=== PATIENT | female | born 1940 | race Caucasian/White ===

== ENCOUNTER → 2016-10-20 | Outpatient (CLI) | payer MEDICARE, OTHER ==
[~2016-10-20] MED LIST: ADVA115A INH; ADVAI100I PO; ALPR0.5T3 PO; ALPR0.5T99 PO; ASPI81CH CHEW; CALC0.25 PO; CEPH500T PO; FERR200T PO; FERR325T PO; FOLI1TAB4; FURO20TA PO; HYDR-3535 PO; HYDR12.56 PO; HYDR25TA35 PO; HYDR25TA5; KETO2CRE; LANTINJ SQ; LANTUS2P SC; LEVO.05 PO; LEVO.075 PO; LIDO1PAD52 T-DERMAL; LIDO5DIS35 TD; LISI-357 PO; LISI-519 PO; METO50CR PO; METO50TA PO; MUPI2OIN TP; NORC7.5T PO; NOVOLOGP2 SQ; NYST15T; OMEG300C5 PO; OMEP40CA2 PO; PRED1 PO; PRED5 PO; PRED5TAB PO; PRIL40CA PO; ROSU10 PO; TEMA30CA PO; TOBR3.5O EACH EYE; TRAD5TAB PO; VITA1000 PO; VITA100020 SL; VITA100021 SL; VITA100C4 PO; VITATAB25 PO
[2016-10-20 15:33] LABS: BASOPHIL # 0.1 TH/MM3 (0-0.2); BASOPHIL % 0.5 % (0.0-2.0); EOSINOPHIL % 0.4 % (0.0-4.0); HEMO FLAGS DIFF FINAL; LYMPH % 8.1 % (9.0-44.0); LYMPHOCYTE # 1.1 TH/MM3 (1.0-4.8); MEAN CELL VOLUME 93.9 FL (80.0-100.0); MEAN CORPUSCULAR HGB CONC 30.9 % (32.0-36.0); MONO % 7.5 % (0.0-8.0); NEUT % 83.5 % (16.0-70.0); PLATELET COUNT 229 TH/MM3 (150-450); RED BLOOD COUNT 4.15 MIL/MM3 (4.00-5.30); RED CELL DISTRIBUTION WIDTH 17.1 % (11.6-17.2); WHITE BLOOD COUNT 13.2 TH/MM3 (4.0-11.0)
[2016-10-20 15:52] LABS: WESTERGREN SEDIMENTATION RATE 40 mm/hr (0-30)
[2016-10-20 15:57] LABS: ALT (GPT) 33 U/L (10-53); ANION GAP 8 MEQ/L (5-15); AST (GOT) 16 U/L (15-37); BICARBONATE 27.2 MEQ/L (21.0-32.0); BLOOD UREA NITROGEN 55 MG/DL (7-18); CHLORIDE 105 MEQ/L (98-107); GLOMERULAR FILTRATION RATE 20 ML/MIN (>89); POTASSIUM 3.7 MEQ/L (3.5-5.1); SODIUM (NA) 140 MEQ/L (136-145)
[2016-10-20 16:00] LABS: ALKALINE PHOSPHATASE 63 U/L (45-117); TOTAL BILIRUBIN ADULT 0.3 MG/DL (0.2-1.0)
== END ==
LOC: PLAB 10:31
PROVIDERS: ATTEND Allergy & Immunology
DX: M05.79 Rheumatoid arthritis with rheumatoid factor of multiple sites without organ or systems involvement (principal); M35.3 Polymyalgia rheumatica
CPT/HCPCS: 36415; 80053; 85025; 85652; 86140

== ENCOUNTER → 2016-11-16 | Outpatient (CLI) | payer MEDICARE, OTHER ==
--- NOTE | 2016-11-19 09:09 | HM ---
Date Performed: 11/16/2016 Time Performed: 12:32:00 HOOKUP DATE: 11/16/16 12:32:00 PM Wed ANALYSIS START TIME: 11/16/2016 12:37:00 PM ANALYSIS END TIME: 11/17/2016 12:41:00 PM PATIENT AGE: 76 PATIENT HEIGHT PATIENT WEIGHT DRUG LIST PATIENT DIAGNOSIS: HEART PALPITATIONS TEST NARRATIVE: The patient's average heart rate was 75 BPM. No episodes of tachycardia wer e noted. No episodes of bradycardia were noted. No pauses exceeding 2.0 seconds were noted. 11 ventricular ectopics, which represented < 1% of the total beat count, were noted. The highest an tricular ectopic frequency occurred from 09:00 PM to 10:00 PM Wed. During this time 2 VE(s) occurred . Ventricular ectopics were observed as 11 isolated beat(s) only. No couplets or runs were noted. 3 supraventricular ectopics, which represented < 1% of the total beat count, were noted. The high est supraventricular ectopic frequency occurred from 05:00 AM to 06:00 AM Lakisha. During this time 1 SV E(s) occurred. No episodes of ST depression (defined as -1.0 mm or more) were noted in channel 1. No episodes of ST depression (defined as -1.0 mm or more) were noted in channel 2. No episodes of ST depression (defined as -1.0 mm or more) were noted in channel 3. TEST INTERPRETATION: Agree with the narrative. Overall, patient has very infrequent ventricular beats, with only 11 recorded and 3 PACS recorded. No complex arrythmias were present. The patient no pj palpitations once with dizziness at 830am. No arrythmias were noted. Overall, this is a very chelsey gn appearing holter monitor. Janny d by : Edvin Andino
== END ==
LOC: HCAV 12:17
PROVIDERS: ATTEND Family Medicine
DX: G45.9 Transient cerebral ischemic attack, unspecified (principal); R00.2 Palpitations; H54.0 Blindness, both eyes
CPT/HCPCS: 93225; 93226

== ENCOUNTER → 2016-11-30 | Outpatient (CLI) | payer MEDICARE, OTHER ==
[~2016-11-30] MED LIST changes: -ADVAI100I PO; -ALPR0.5T99 PO; -FERR325T PO; -HYDR12.56 PO; -HYDR25TA35 PO; -LANTUS2P SC; -LEVO.05 PO; -LIDO5DIS35 TD; -LISI-357 PO; -METO50CR PO; -NORC7.5T PO; -PRED5 PO; -PRIL40CA PO; -VITA100020 SL; -VITATAB25 PO
[2016-11-30 12:50] LABS: BLOOD, URINE NEG (NEG); COMMENT (UR) CULT NOT INDICATED; CULTURE IF INDICATED CULT NOT INDICATED; GLUCOSE,URINE TRACE mg/dL (NEG); KETONE, URINE NEG (NEG); MUCUS URINE FEW /lpf (OCC); NITRITE,URINE NEG (NEG); SQUAMOUS EPITHELIAL CELL URINE <1 /hpf (0-5); URINE COLOR YELLOW (YELLW/STRAW)
[2016-11-30 13:10] LABS: AUTOMATED NEUTROPHIL # 10.2 TH/MM3 (1.8-7.7); BASOPHIL # 0.1 TH/MM3 (0-0.2); BASOPHIL % 0.7 % (0.0-2.0); EOSINOPHIL # 0.2 TH/MM3 (0-0.4); EOSINOPHIL % 1.7 % (0.0-4.0); HEMATOCRIT 35.8 % (35.0-46.0); HEMO FLAGS DIFF FINAL; LYMPH % 6.4 % (9.0-44.0); LYMPHOCYTE # 0.8 TH/MM3 (1.0-4.8); MEAN CELL VOLUME 92.1 FL (80.0-100.0); MEAN CORPUSCULAR HEMOGLOBIN 29.7 PG (27.0-34.0); MEAN CORPUSCULAR HGB CONC 32.3 % (32.0-36.0); MONO % 9.8 % (0.0-8.0); NEUT % 81.4 % (16.0-70.0); PLATELET COUNT 221 TH/MM3 (150-450); RED BLOOD COUNT 3.89 MIL/MM3 (4.00-5.30); RED CELL DISTRIBUTION WIDTH 16.8 % (11.6-17.2); WHITE BLOOD COUNT 12.5 TH/MM3 (4.0-11.0)
[2016-11-30 13:11] LABS: BICARBONATE 28.4 MEQ/L (21.0-32.0); POTASSIUM 3.9 MEQ/L (3.5-5.1)
== END ==
LOC: PLAB 10:57
PROVIDERS: ATTEND Internal Medicine Nephrology
DX: N25.81 Secondary hyperparathyroidism of renal origin (principal); N18.4 Chronic kidney disease, stage 4 (severe)
CPT/HCPCS: 36415; 80069; 81001; 82570; 83970; 84156; 85025

== ENCOUNTER → 2017-01-23 | Outpatient (CLI) | payer MEDICARE, OTHER ==
[2017-01-23 13:29] LABS: AUTOMATED NEUTROPHIL # 10.4 TH/MM3 (1.8-7.7); BASOPHIL # 0.1 TH/MM3 (0-0.2); EOSINOPHIL # 0.1 TH/MM3 (0-0.4); EOSINOPHIL % 0.9 % (0.0-4.0); HEMATOCRIT 35.4 % (35.0-46.0); HEMO FLAGS DIFF FINAL; LYMPH % 9.2 % (9.0-44.0); LYMPHOCYTE # 1.2 TH/MM3 (1.0-4.8); MEAN CELL VOLUME 92.4 FL (80.0-100.0); MEAN CORPUSCULAR HEMOGLOBIN 29.9 PG (27.0-34.0); MEAN CORPUSCULAR HGB CONC 32.3 % (32.0-36.0); MONO % 8.3 % (0.0-8.0); NEUT % 80.6 % (16.0-70.0); PLATELET COUNT 219 TH/MM3 (150-450); RED BLOOD COUNT 3.83 MIL/MM3 (4.00-5.30); RED CELL DISTRIBUTION WIDTH 17.4 % (11.6-17.2)
[2017-01-23 13:55] LABS: ALT (GPT) 30 U/L (10-53); ANION GAP 7 MEQ/L (5-15); AST (GOT) 14 U/L (15-37); BICARBONATE 28.6 MEQ/L (21.0-32.0); BLOOD UREA NITROGEN 50 MG/DL (7-18); CHLORIDE 105 MEQ/L (98-107); POTASSIUM 4.6 MEQ/L (3.5-5.1); SODIUM (NA) 141 MEQ/L (136-145)
[2017-01-23 14:04] LABS: ALKALINE PHOSPHATASE 60 U/L (45-117); GLOMERULAR FILTRATION RATE 25 ML/MIN (>89); TOTAL BILIRUBIN ADULT 0.3 MG/DL (0.2-1.0)
== END ==
LOC: PLAB 11:11
PROVIDERS: ATTEND Allergy & Immunology
DX: M35.3 Polymyalgia rheumatica (principal)
CPT/HCPCS: 36415; 80053; 85025

== ENCOUNTER → 2017-01-27 | Outpatient (CLI) | payer MEDICARE, OTHER ==
[2017-01-27 13:53] LABS: ALKALINE PHOSPHATASE 61 U/L (45-117); ALT (GPT) 29 U/L (10-53); AST (GOT) 14 U/L (15-37); FERRITIN 191 NG/ML (8-252); INDIRECT BILIRUBIN 0.2 MG/DL (0.0-0.8); TOTAL BILIRUBIN ADULT 0.3 MG/DL (0.2-1.0); TRANSFERRIN IRON PROFILE 249 MG/DL (200-360)
[2017-01-29 23:54] LABS: MITOCHONDRIAL ABS LESS THAN 20.0 U (())
[2017-01-30 19:52] LABS: IGA SERUM 192 mg/dL (81-463); TISSUE TRANSGLUTAMINASE AB IGG ND U/mL (())
[2017-02-01 03:50] LABS: ENDOMYSIAL AB TITER ND (<1:5); TISSUE TRANSGLUTAMINASE AB LESS THAN 1 U/mL (())
== END ==
LOC: PLAB 09:14
PROVIDERS: ATTEND Internal Medicine
DX: K76.0 Fatty (change of) liver, not elsewhere classified (principal); M35.3 Polymyalgia rheumatica
CPT/HCPCS: 80076; 82103; 82728; 82784; 83516; 83520; 83540; 83550; 85652; 86038; 86140; 86256

== ENCOUNTER → 2017-03-09 | Outpatient (CLI) | payer MEDICARE, OTHER ==
[2017-03-09 09:49] LABS: BLOOD, URINE NEG (NEG); COMMENT (UR) CULT NOT INDICATED; CULTURE IF INDICATED CULT NOT INDICATED; GLUCOSE,URINE NEG (NEG); HYALINE CAST, URINE 1 /lpf (RARE); KETONE, URINE NEG (NEG); MUCUS URINE FEW /lpf (OCC); NITRITE,URINE NEG (NEG); SQUAMOUS EPITHELIAL CELL URINE <1 /hpf (0-5); URINE COLOR YELLOW (YELLW/STRAW)
[2017-03-09 09:50] LABS: AUTOMATED NEUTROPHIL # 7.8 TH/MM3 (1.8-7.7); BASOPHIL # 0.1 TH/MM3 (0-0.2); BASOPHIL % 0.7 % (0.0-2.0); EOSINOPHIL # 0.1 TH/MM3 (0-0.4); EOSINOPHIL % 0.9 % (0.0-4.0); HEMATOCRIT 36.2 % (35.0-46.0); LYMPH % 12.9 % (9.0-44.0); LYMPHOCYTE # 1.3 TH/MM3 (1.0-4.8); MEAN CELL VOLUME 92.5 FL (80.0-100.0); MEAN CORPUSCULAR HEMOGLOBIN 29.8 PG (27.0-34.0); MEAN CORPUSCULAR HGB CONC 32.2 % (32.0-36.0); MONO % 8.7 % (0.0-8.0); NEUT % 76.8 % (16.0-70.0); PLATELET COUNT 210 TH/MM3 (150-450); RED BLOOD COUNT 3.91 MIL/MM3 (4.00-5.30); RED CELL DISTRIBUTION WIDTH 17.3 % (11.6-17.2); WHITE BLOOD COUNT 10.2 TH/MM3 (4.0-11.0)
[2017-03-09 09:58] LABS: HEMO FLAGS AUTO DIFF
[2017-03-09 10:01] LABS: POTASSIUM 4.3 MEQ/L (3.5-5.1)
[2017-03-09 10:10] LABS: FREE T4 1.07 NG/DL (0.76-1.46)
[2017-03-09 10:59] LABS: BANDS 2 % (0-6); BASOPHILS 1 % (0-2); EOSINOPHILS 1 % (0-4); METAMYELOCYTES 1 % (0-1); MYELOCYTES 1 % (0-0); NEUTROPHIL # MANUAL DIFF 8.8 TH/MM3 (1.8-7.7); POLYS (SEG NEUTROPHILS) 82 % (16-70); WBC DIFF SAMPLE 100
[2017-03-09 11:00] LABS: SCAN/DIFF FINAL DIFF MANUAL
[2017-03-09 16:51] LABS: HEMOGLOBIN A1b 2.9 %; HEMOGLOBIN Ao 77.7 %; HEMOGLOBIN LA1C 2.9 %; HEMOGLOBIN P3 7.9 %
== END ==
LOC: PLAB 07:56
PROVIDERS: ATTEND Internal Medicine Nephrology
DX: E03.9 Hypothyroidism, unspecified (principal); N18.4 Chronic kidney disease, stage 4 (severe); E11.22 Type 2 diabetes mellitus with diabetic chronic kidney disease
CPT/HCPCS: 36415; 80069; 81001; 82570; 83036; 83970; 84156; 84439; 84443; 85007; 85027

== ENCOUNTER → 2017-03-14 | Day surgery (SDC) | payer MEDICARE, OTHER ==
[~2017-03-14] VITALS: Ht 172.7 cm; Wt 91.3 kg
[~2017-03-14] MED LIST changes: +BUPIVACAINE/EPINEPHRINE 0.5% PF 30 ML VIAL ONE; +CHLORHEXIDINE GLUCONATE 2 % 1 PACK (2 CLOTHS) TOPICAL PRN; +DO NOT ADM ANY ANTICOAGULANT DRUGS PRN; +FAMOTIDINE 20 MG/2 ML VIAL ONE; -FOLI1TAB4; -HYDR25TA5; +INSULIN HUMAN REGULAR 1,000 UNITS/10 ML VIAL SQ PRN; +KETAMINE HCL 500 MG/5 ML VIAL ONE; -KETO2CRE; +LACTATED RINGER'S 1000 ML IV PRN; +METOPROLOL TARTRATE 25 MG TAB PO PRN; +MIDAZOLAM HCL 2 MG/2 ML VIAL ONE; -NYST15T; +ONDANSETRON HCL 4 MG/2 ML VIAL IV PUSH ONE; +PHENYLEPH/NS 1000 MCG/10 ML SYR IV ONE; +POVIDONE IODINE 5% (ANTISEPSIS KIT) 4 APPLICATIONS EACH NARE PRN; +PROPOFOL 200 MG/20 ML AMP IV ONE; +SODIUM CHLORID 0.9% 500 ML IV PRN; +fentaNYL CITRATE 250 MCG/5 ML AMP ONE
[2017-03-14 06:47] LABS: AUTOMATED NEUTROPHIL # 10.3 TH/MM3 (1.8-7.7); BASOPHIL # 0.1 TH/MM3 (0-0.2); BASOPHIL % 0.6 % (0.0-2.0); EOSINOPHIL # 0.1 TH/MM3 (0-0.4); EOSINOPHIL % 1.1 % (0.0-4.0); HEMATOCRIT 35.4 % (35.0-46.0); HEMO FLAGS DIFF FINAL; LYMPH % 10.8 % (9.0-44.0); LYMPHOCYTE # 1.4 TH/MM3 (1.0-4.8); MEAN CELL VOLUME 91.7 FL (80.0-100.0); MEAN CORPUSCULAR HEMOGLOBIN 30.3 PG (27.0-34.0); MEAN CORPUSCULAR HGB CONC 33.1 % (32.0-36.0); MONO % 9.7 % (0.0-8.0); NEUT % 77.8 % (16.0-70.0); PLATELET COUNT 221 TH/MM3 (150-450); RED BLOOD COUNT 3.86 MIL/MM3 (4.00-5.30); RED CELL DISTRIBUTION WIDTH 17.5 % (11.6-17.2); WHITE BLOOD COUNT 13.2 TH/MM3 (4.0-11.0)
[2017-03-14 07:01] LABS: POTASSIUM 4.1 MEQ/L (3.5-5.1)
[2017-03-14 07:13] VITALS: BP 121/72; PULSE 75; RESP 18; TEMP 98.2; O2SAT 98
[2017-03-14 10:37] VITALS: BP 103/56; PULSE 72; RESP 18; TEMP 98; O2SAT 100
--- NOTE | 2017-03-14 22:45 | MP ---
cc: JUICE HERNÁNDEZ MD,GENA MCCAIN MD DATE OF SURGERY 03/14/17 PREOPERATIVE DIAGNOSIS Temporal arteritis. POSTOPERATIVE DIAGNOSIS Temporal arteritis. PROCEDURE Bilateral temporal artery biopsy. SURGEON Regan Ladd MD HYPO DIPPER YULI Rogers ANESTHESIA General/local. DESCRIPTION OF PROCEDURE With the patient in the supine position general endotracheal anesthesia was induced, both facial regions and both ears were prepped with Betadine and draped in a sterile fashion. No prophylactic antibiotic was indicated. Following a protocol time-out, the skin and subcutaneous tissue immediately anterior to each ear was infiltrated with 0.5% Marcaine with epinephrine. Vertical incisions were performed. The right and left superficial temporal arteries were circumferentially mobilized proximally and distally for approximately 5 cm. Branches were individually isolated and ligated with small hemoclips. The superficial temporal arteries were ligated proximally and distally with hemoclips and intervening segment excised, submitted for histology. Strict hemostasis was achieved. Both incisions were closed with continuous subcuticular 5-0 Monocryl. Reinforced with Steri-Strips. No operative complications. The patient returned to the recovery room in stable condition having tolerated procedure well. Regan Ladd MD JTS/EO /6:30 PM /10:28 PM
== END | disposition home or self-care (01) ==
LOC: HSDC 06:01
PROVIDERS: ATTEND Surgery Vascular Surgery
DX: M31.5 Giant cell arteritis with polymyalgia rheumatica (principal); J44.9 Chronic obstructive pulmonary disease, unspecified; I13.0 Hypertensive heart and chronic kidney disease with heart failure and stage 1 through stage 4 chronic kidney disease, or unspecified chronic kidney disease; E11.22 Type 2 diabetes mellitus with diabetic chronic kidney disease; N18.4 Chronic kidney disease, stage 4 (severe); E11.40 Type 2 diabetes mellitus with diabetic neuropathy, unspecified; I50.30 Unspecified diastolic (congestive) heart failure; E78.5 Hyperlipidemia, unspecified; E03.9 Hypothyroidism, unspecified; M06.9 Rheumatoid arthritis, unspecified; E66.9 Obesity, unspecified; Z68.30 Body mass index [BMI] 30.0-30.9, adult; Z99.2 Dependence on renal dialysis; Z85.51 Personal history of malignant neoplasm of bladder; Z87.891 Personal history of nicotine dependence; Z79.82 Long term (current) use of aspirin; Z79.4 Long term (current) use of insulin; Z79.52 Long term (current) use of systemic steroids; Z88.1 Allergy status to other antibiotic agents; Z88.0 Allergy status to penicillin; Z88.8 Allergy status to other drugs, medicaments and biological substances
CPT/HCPCS: 37609; 80048; 85025; 88305; J2250; J2370; J2405; J3010; J7120; 88304

== ENCOUNTER → 2017-03-28 | Outpatient (CLI) | payer MEDICARE, OTHER ==
[~2017-03-28] MED LIST changes: -BUPIVACAINE/EPINEPHRINE 0.5% PF 30 ML VIAL ONE; -CHLORHEXIDINE GLUCONATE 2 % 1 PACK (2 CLOTHS) TOPICAL PRN; -DO NOT ADM ANY ANTICOAGULANT DRUGS PRN; -FAMOTIDINE 20 MG/2 ML VIAL ONE; -INSULIN HUMAN REGULAR 1,000 UNITS/10 ML VIAL SQ PRN; -KETAMINE HCL 500 MG/5 ML VIAL ONE; -LACTATED RINGER'S 1000 ML IV PRN; -METOPROLOL TARTRATE 25 MG TAB PO PRN; -MIDAZOLAM HCL 2 MG/2 ML VIAL ONE; -OMEG300C5 PO; -ONDANSETRON HCL 4 MG/2 ML VIAL IV PUSH ONE; -PHENYLEPH/NS 1000 MCG/10 ML SYR IV ONE; -POVIDONE IODINE 5% (ANTISEPSIS KIT) 4 APPLICATIONS EACH NARE PRN; -PROPOFOL 200 MG/20 ML AMP IV ONE; -SODIUM CHLORID 0.9% 500 ML IV PRN; -fentaNYL CITRATE 250 MCG/5 ML AMP ONE
[2017-03-28 16:46] LABS: BICARBONATE 23.1 MEQ/L (21.0-32.0); POTASSIUM 4.4 MEQ/L (3.5-5.1)
== END ==
LOC: PLAB 12:23
PROVIDERS: ATTEND Internal Medicine Nephrology
DX: N18.4 Chronic kidney disease, stage 4 (severe) (principal)
CPT/HCPCS: 36415; 80069

== ENCOUNTER → 2017-05-31 | Outpatient (CLI) | payer MEDICARE, OTHER ==
[~2017-05-31] MED LIST changes: +AGGR20025 PO; -ASPI81CH CHEW; -CEPH500T PO
[2017-05-31 16:29] LABS: AUTOMATED NEUTROPHIL # 9.7 TH/MM3 (1.8-7.7); BASOPHIL # 0.1 TH/MM3 (0-0.2); BASOPHIL % 0.8 % (0.0-2.0); EOSINOPHIL # 0.1 TH/MM3 (0-0.4); EOSINOPHIL % 0.7 % (0.0-4.0); HEMATOCRIT 35.2 % (35.0-46.0); HEMO FLAGS DIFF FINAL; LYMPH % 8.2 % (9.0-44.0); MEAN CELL VOLUME 93.1 FL (80.0-100.0); MEAN CORPUSCULAR HEMOGLOBIN 29.8 PG (27.0-34.0); MONO % 7.3 % (0.0-8.0); PLATELET COUNT 233 TH/MM3 (150-450); RED BLOOD COUNT 3.78 MIL/MM3 (4.00-5.30); RED CELL DISTRIBUTION WIDTH 17.7 % (11.6-17.2); WHITE BLOOD COUNT 11.7 TH/MM3 (4.0-11.0)
[2017-05-31 16:38] LABS: BACTERIA, URINE RARE /hpf; BLOOD, URINE NEG (NEG); COMMENT (UR) CULT NOT INDICATED; CULTURE IF INDICATED CULT NOT INDICATED; GLUCOSE,URINE NEG (NEG); KETONE, URINE NEG (NEG); NITRITE,URINE NEG (NEG); PH, URINE 5.5 (5.0-8.5); SQUAMOUS EPITHELIAL CELL URINE <1 /hpf (0-5); URINE COLOR YELLOW (YELLW/STRAW)
[2017-05-31 16:48] LABS: BICARBONATE 24.7 MEQ/L (21.0-32.0); POTASSIUM 3.9 MEQ/L (3.5-5.1)
[2017-05-31 16:52] LABS: ALT (GPT) 23 U/L (10-53); ANION GAP 8 MEQ/L (5-15); AST (GOT) 16 U/L (15-37); BICARBONATE 25.5 MEQ/L (21.0-32.0); BLOOD UREA NITROGEN 49 MG/DL (7-18); CHLORIDE 109 MEQ/L (98-107); GLOMERULAR FILTRATION RATE 20 ML/MIN (>89); SODIUM (NA) 142 MEQ/L (136-145)
[2017-05-31 16:53] LABS: ALKALINE PHOSPHATASE 60 U/L (45-117); TOTAL BILIRUBIN ADULT 0.2 MG/DL (0.2-1.0)
== END ==
LOC: PLAB 14:15
PROVIDERS: ATTEND Internal Medicine Nephrology
DX: E55.9 Vitamin D deficiency, unspecified (principal); N18.4 Chronic kidney disease, stage 4 (severe); M35.3 Polymyalgia rheumatica
CPT/HCPCS: 36415; 80053; 80069; 81001; 82306; 82570; 83970; 84156; 85025; 85652; 86140

== ENCOUNTER → 2017-07-10 | Outpatient (CLI) | payer MEDICARE, OTHER ==
[2017-07-10 16:02] LABS: POTASSIUM 4.5 MEQ/L (3.5-5.1)
== END ==
LOC: PLAB 12:17
PROVIDERS: ATTEND Internal Medicine Nephrology
DX: N18.4 Chronic kidney disease, stage 4 (severe) (principal)
CPT/HCPCS: 36415; 80048

== ENCOUNTER → 2017-08-29 | Outpatient (CLI) | payer MEDICARE, OTHER ==
[2017-08-29 15:57] LABS: AUTOMATED NEUTROPHIL # 9.8 TH/MM3 (1.8-7.7); BASOPHIL # 0.1 TH/MM3 (0-0.2); BASOPHIL % 0.5 % (0.0-2.0); EOSINOPHIL # 0.1 TH/MM3 (0-0.4); EOSINOPHIL % 0.8 % (0.0-4.0); HEMATOCRIT 34.2 % (35.0-46.0); HEMO FLAGS DIFF FINAL; LYMPH % 9.1 % (9.0-44.0); LYMPHOCYTE # 1.1 TH/MM3 (1.0-4.8); MEAN CELL VOLUME 93.7 FL (80.0-100.0); MEAN CORPUSCULAR HEMOGLOBIN 30.2 PG (27.0-34.0); MEAN CORPUSCULAR HGB CONC 32.3 % (32.0-36.0); NEUT % 82.6 % (16.0-70.0); PLATELET COUNT 267 TH/MM3 (150-450); RED BLOOD COUNT 3.65 MIL/MM3 (4.00-5.30); WHITE BLOOD COUNT 11.8 TH/MM3 (4.0-11.0)
[2017-08-29 16:13] LABS: ALT (GPT) 30 U/L (10-53); ANION GAP 9 MEQ/L (5-15); AST (GOT) 17 U/L (15-37); BICARBONATE 21.3 MEQ/L (21.0-32.0); BLOOD UREA NITROGEN 54 MG/DL (7-18); CHLORIDE 112 MEQ/L (98-107); GLOMERULAR FILTRATION RATE 23 ML/MIN (>89); POTASSIUM 4.6 MEQ/L (3.5-5.1); SODIUM (NA) 142 MEQ/L (136-145)
[2017-08-29 16:16] LABS: ALKALINE PHOSPHATASE 61 U/L (45-117); TOTAL BILIRUBIN ADULT 0.2 MG/DL (0.2-1.0)
== END ==
LOC: PLAB 13:03
PROVIDERS: ATTEND Allergy & Immunology
DX: M47.26 Other spondylosis with radiculopathy, lumbar region (principal)
CPT/HCPCS: 36415; 80053; 85025; 86140

== ENCOUNTER 2017-09-24 10:41 | Emergency (ER) | payer MEDICARE, OTHER ==
[~2017-09-24] VITALS: Ht 174 cm; Wt 90.6 kg
[2017-09-24 10:46] VITALS: BP 129/63; PULSE 80; RESP 16; TEMP 97.9; O2SAT 97
[2017-09-24] MEDS ORDERED: MONT10TA2 PO (12:32)
[2017-09-24] MEDS ORDERED: BUDE0.25 NEB (12:32)
[2017-09-24] MEDS ORDERED: BROV15NE NEB (12:32)
[2017-09-24] MEDS ORDERED: SODIUM CHLOR 0.9% 1000 ML INJ 1,000 ML IV SCH (12:34)
--- NOTE | 2017-09-24 12:40 | PD ---
HPI Chief Complaint: Flank/Kidney Pain Time Seen by Provider: 12:26 Travel History International Travel<30 days: No Contact w/Intl Traveler<30days: No Traveled to known affect area: No History of Present Illness HPI The patient is a 77-year-old female who presents to the emergency department for left lower quadrant abdominal pain and left flank pain of 4 days ' duration. The patient states the pain started 4 days ago in the left mid back and radiates into the left flank, now radiating to left lower quadrant. The pain is worse with lying on the affected area as well as palpation. She does know some nausea and vomiting secondary to the pain, denies any diarrhea or change in bowel habits. The patient's last normal bowel movement was yesterday. The patient denies any dysuria, frequency, urgency, or hematuria. 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 She currently has CKD stage IV and is seen by the box builder, Dr. Dotson. She does have a history of diverticulitis, denies any history of nephrolithiasis. She denies any associated fever, chills, or sweats. Symptoms are moderate without any alleviating factors. PFSH Past Medical History Hx Anticoagulant Therapy: Yes (AGGRANOX) Arthritis: Yes (RHEUMATOID ARTHRITIS, PMA) Asthma: No Autoimmune Disease: No Blood Disorders: No Anxiety: Yes Depression: No Heart Rhythm Problems: No Cancer: Yes (BLADDER CANCER, SKIN CA) Cardiovascular Problems: Yes (dyastolic heart failure) High Cholesterol: Yes Chemotherapy: No Chest Pain: No Congestive Heart Failure: No COPD: No Cerebrovascular Accident: No Diabetes: Yes Patient Takes Glucophage: No Diminished Hearing: No Endocrine: Yes Gastrointestinal Disorders: Yes (reflux) GERD: Yes Glaucoma: No Genitourinary: Yes Headaches: No Hepatitis: No Hiatal Hernia: No Hypertension: Yes Immune Disorder: Yes (RA, FIBROMYALGIA,) Kidney Stones: No Medical other: Yes (GERD, RA, ARTHRITIS) Musculoskeletal: Yes (ARTHRITIS) Neurologic: Yes (TIA, vission problems, neuropathy) Psychiatric: Yes Reproductive: No Respiratory: Yes (COPD) Immunizations Current: Yes Migraines: No Myocardial Infarction: No Radiation Therapy: No Renal Failure: Yes (STENTS PLACED BY [facility] [facility], RENAL INSUFFICIENCY) Seizures: No Sickle Cell Disease: No Sleep Apnea: No Thyroid Disease: Yes Ulcer: No PNEUMOCCOCAL Vaccine (Year): 2 ?: Not Menopausal: Yes Past Surgical History Abdominal Surgery: Yes (GALLBLADDER,2 RENAL ARTERY STENOSIS) AICD: No Appendectomy: No Arteriovenous Shunt: No Body Medical Devices: STENTS ON BOTH FOR RENALS STENOSIS Cardiac Surgery: No Cholecystectomy: Yes Ear Surgery: No Endocrine Surgery: Yes (MAGNOLIA. RENAL stents STENOSIS, ONE FUNCTIONING KIDNEY) Eye Surgery: Yes (R EYE CATARACT ) Genitourinary Surgery: Yes (TURBTX3, RENAL STENTS, ONLY L FUNCTIONING KIDNEY) Gynecologic Surgery: Yes Insulin Pump: No Joint Replacement: No Oral Surgery: Yes (SINUS SURGERY) Pacemaker: No Thoracic Surgery: No Other Surgery: Yes ("facial surgery,skin cancer" 2007-endoscopy,GI bleed, ESOPHAGEAL STRETCHI) Social History Alcohol Use: Yes (occ) Tobacco Use: No (QUIT ) Substance Use: No Allergies-Medications (Allergen,Severity, Reaction): Coded Allergies: nystatin (Unverified Allergy, Severe, Joint Pain, 09/24/17) pantoprazole (Unverified Allergy, Severe, Nausea/Vomiting, 09/24/17) penicillin G (Unverified Allergy, Severe, Anaphylaxis, 09/24/17) sulfamethoxazole (Unverified Allergy, Severe, VOMITING, 09/24/17) trimethoprim (Unverified Allergy, Severe, VOMITING, 09/24/17) doxycycline (Unverified Adverse Reaction, Severe, BONE PAIN, 09/24/17) minocycline (Unverified Adverse Reaction, Severe, BONE PAIN, 09/24/17) tigecycline (Unverified Adverse Reaction, Severe, BONE PAIN, 09/24/17) Reported Meds & Prescriptions Reported Meds & Active Scripts Active Reported Brovana Neb (Arformoterol Neb) 15 Mcg/2 Ml Vial 1 Nebule NEB BID Maintenance treatment of bronchoconstriction in COPD. Budesonide Neb 0.25 Mg/2 Ml Neb 0.25 Mg NEB DAILY NEB Singulair (Montelukast Sodium) 10 Mg Tab 10 Mg PO HS Aggrenox (Dipyridamole/Aspirin) 200-25 Mg Cap 1 Cap PO BID Vitamin B-12 (Cyanocobalamin) 1,000 Mcg Subl 1,000 Mcg SL HS Feosol (Ferrous Sulfate) 200 Mg Tab 325 Mg PO HS Vitamin D-1000 (Cholecalciferol) 1,000 Unit Tab 5,000 Units PO HS Novolog Inj (Insulin Aspart) 1,000 Unit/10 Ml Vial 0 SQ DIRECTED Sliding Scale as directed. Alprazolam 0.5 Mg Tab 1 Tab PO DAILY PRN Omeprazole 40 Mg Cap 40 Mg PO BID Crestor (Rosuvastatin Calcium) 10 Mg Tab 10 Mg PO HS Furosemide 20 Mg Tab 1 Tab PO EVERY OTHER DAY Lisinopril 5 Mg Tab 1 Tab PO DAILY Metoprolol Tartrate 50 Mg Tab 75 Mg PO BID Synthroid (Levothyroxine Sodium) 75 Mcg Tab 1 Tab PO DAILYAC Tradjenta (Linagliptin) 5 Mg Tab 5 Mg PO DAILY Prednisone 5 Mg Tab 5 Mg PO BID Lantus Solostar Pen Inj (Insulin Glargine) 300 Unit/3 Ml Pen 26 Units SQ DAILY Lidocaine Patch 12 HR (Lidocaine) 5 % Patch 1 Patch T-DERMAL BID Review of Systems Except as stated in HPI: all other systems reviewed are Neg General / Constitutional: No: Fever Cardiovascular: No: Chest Pain or Discomfort Respiratory: No: Shortness of Breath Gastrointestinal: Positive: Nausea, Vomiting, Abdominal Pain, No: Diarrhea, Constipation Genitourinary: Positive: Flank Pain, No: Urgency, Frequency, Dysuria, Hematuria Musculoskeletal: No: Myalgias, Arthralgias Skin: No Rash Physical Exam Narrative GENERAL: Awake, alert, pleasant 77-year-old female who appears her stated age and is in no acute respiratory distress. SKIN: Focused skin assessment warm/dry. Patient has thin-appearing skin with several areas of ecchymosis in the arms bilateral (she attributes it to prolonged prednisone use). HEAD: Atraumatic. Normocephalic. EYES: No injection or drainage. ENT: No nasal bleeding or discharge. Mucous membranes pink and moist. NECK: Trachea midline. No JVD. CARDIOVASCULAR: Regular rate and rhythm. No murmur appreciated. RESPIRATORY: No accessory muscle use. Clear to auscultation. Breath sounds equal bilaterally. GASTROINTESTINAL: Abdomen soft, tender to palpation left lower quadrant and left flank. Back: No CVA tenderness. MUSCULOSKELETAL: No obvious deformities. No clubbing. No cyanosis. No edema. NEUROLOGICAL: Awake and alert. No obvious cranial nerve deficits. Motor grossly within normal limits. Normal speech. PSYCHIATRIC: Appropriate mood and affect; insight and judgment normal. Data Data Last Documented VS Vital Signs Date Time Temp Pulse Resp B/P (MAP) Pulse Ox O2 Delivery O2 Flow Rate FiO2 09/24/17 13:15 67 16 140/73 (95) 94 09/24/17 10:46 97.9 Orders Orders Complete Blood Count With Diff (09/24/17 12:34) Comprehensive Metabolic Panel (09/24/17 12:34) Lipase (09/24/17 12:34) Urinalysis - C+S If Indicated (09/24/17 12:34) Ct Abd/Pel W/O Iv Contrast (09/24/17 12:34) Iv Access Insert/Monitor (09/24/17 12:34) Ecg Monitoring (09/24/17 12:34) Oximetry (09/24/17 12:34) Morphine Inj (Morphine Inj) (09/24/17 12:45) Ondansetron Inj (Zofran Inj) (09/24/17 12:45) Sodium Chlor 0.9% 1000 Ml Inj (Ns 1000 M (09/24/17 12:34) Sodium Chloride 0.9% Flush (Ns Flush) (09/24/17 12:45) Morphine Inj (Morphine Inj) (09/24/17 14:30) Ed Discharge Order (09/24/17 14:18) Labs Laboratory Tests Test 09/24/17 12:40 09/24/17 12:45 Urine Collection Type CLEAN CATCH Urine Color YELLOW Urine Turbidity CLEAR Urine pH 6.0 Urine Specific [place] 1.015 Urine Protein 30 mg/dL Urine Glucose (UA) 250 mg/dL Urine Ketones NEG mg/dL Urine Occult Blood SMALL Urine Nitrite NEG Urine Bilirubin NEG Urine Leukocyte Esterase NEG Urine RBC 0-3 /hpf Urine Squamous Epithelial Cells 0-5 /hpf Urine Amorphous Sediment FEW Microscopic Urinalysis Comment CULT NOT INDICATED Urine Collection Time 1240 White Blood Count 13.5 TH/MM3 Red Blood Count 4.36 MIL/MM3 Hemoglobin 12.4 GM/DL Hematocrit 39.6 % Mean Corpuscular Volume 90.8 FL Mean Corpuscular Hemoglobin 28.4 PG Mean Corpuscular Hemoglobin Concent 31.3 % Red Cell Distribution Width 16.7 % Platelet Count 276 TH/MM3 Mean Platelet Volume 8.3 FL Neutrophils (%) (Auto) 80.4 % Lymphocytes (%) (Auto) 9.2 % Monocytes (%) (Auto) 8.3 % Eosinophils (%) (Auto) 0.6 % Basophils (%) (Auto) 1.5 % Neutrophils # (Auto) 10.9 TH/MM3 Lymphocytes # (Auto) 1.2 TH/MM3 Monocytes # (Auto) 1.1 TH/MM3 Eosinophils # (Auto) 0.1 TH/MM3 Basophils # (Auto) 0.2 TH/MM3 CBC Comment DIFF FINAL Differential Comment Blood Urea Nitrogen 37 MG/DL Creatinine 1.90 MG/DL Random Glucose 192 MG/DL Total Protein 7.2 GM/DL Albumin 2.9 GM/DL Calcium Level 9.7 MG/DL Alkaline Phosphatase 97 U/L Aspartate Amino Transf (AST/SGOT) 21 U/L Alanine Aminotransferase (ALT/SGPT) 34 U/L Total Bilirubin 0.4 MG/DL Sodium Level 140 MEQ/L Potassium Level 4.9 MEQ/L Chloride Level 106 MEQ/L Carbon Dioxide Level 25.9 MEQ/L Anion Gap 8 MEQ/L Estimat Glomerular Filtration Rate 26 ML/MIN Lipase 128 U/L [facility] Medical Decision Making Medical Screen Exam Complete: Yes Emergency Medical Condition: Yes Medical Record Reviewed: Yes Interpretation(s) Laboratory Tests Test 09/24/17 12:40 09/24/17 12:45 Urine Collection Type CLEAN CATCH Urine Color YELLOW Urine Turbidity CLEAR Urine pH 6.0 Urine Specific [place] 1.015 Urine Protein 30 mg/dL Urine Glucose (UA) 250 mg/dL Urine Ketones NEG mg/dL Urine Occult Blood SMALL Urine Nitrite NEG Urine Bilirubin NEG Urine Leukocyte Esterase NEG Urine RBC 0-3 /hpf Urine Squamous Epithelial Cells 0-5 /hpf Urine Amorphous Sediment FEW Microscopic Urinalysis Comment CULT NOT INDICATED Urine Collection Time 1240 White Blood Count 13.5 TH/MM3 Red Blood Count 4.36 MIL/MM3 Hemoglobin 12.4 GM/DL Hematocrit 39.6 % Mean Corpuscular Volume 90.8 FL Mean Corpuscular Hemoglobin 28.4 PG Mean Corpuscular Hemoglobin Concent 31.3 % Red Cell Distribution Width 16.7 % Platelet Count 276 TH/MM3 Mean Platelet Volume 8.3 FL Neutrophils (%) (Auto) 80.4 % Lymphocytes (%) (Auto) 9.2 % Monocytes (%) (Auto) 8.3 % Eosinophils (%) (Auto) 0.6 % Basophils (%) (Auto) 1.5 % Neutrophils # (Auto) 10.9 TH/MM3 Lymphocytes # (Auto) 1.2 TH/MM3 Monocytes # (Auto) 1.1 TH/MM3 Eosinophils # (Auto) 0.1 TH/MM3 Basophils # (Auto) 0.2 TH/MM3 CBC Comment DIFF FINAL Differential Comment Blood Urea Nitrogen 37 MG/DL Creatinine 1.90 MG/DL Random Glucose 192 MG/DL Total Protein 7.2 GM/DL Albumin 2.9 GM/DL Calcium Level 9.7 MG/DL Alkaline Phosphatase 97 U/L Aspartate Amino Transf (AST/SGOT) 21 U/L Alanine Aminotransferase (ALT/SGPT) 34 U/L Total Bilirubin 0.4 MG/DL Sodium Level 140 MEQ/L Potassium Level 4.9 MEQ/L Chloride Level 106 MEQ/L Carbon Dioxide Level 25.9 MEQ/L Anion Gap 8 MEQ/L Estimat Glomerular Filtration Rate 26 ML/MIN Lipase 128 U/L Last Impressions Abdomen/Pelvis CT 09/24/17 1234 Signed Impressions: Service Date/Time: Sunday, September 24, 2017 13:30 - CONCLUSION: Severe episodic disease with bilateral renal stents. The right kidney is quite atrophic. No free fluid or mass identified. Stable bibasilar scarring in lung bases. Uriel Martell MD Differential Diagnosis Differential diagnosis includes diverticulitis, nephrolithiasis, hydronephrosis , pyelonephritis, abscess, shingles. Narrative Course IV was established, labs are drawn and sent, and the patient was placed on cardiac telemetry monitoring and continuous pulse oximetry monitoring. The patient was administered morphine, Zofran, and IV fluids. Toradol was withheld secondary to history of CKD with one kidney. UA was sent to lab. Noncontrast CT of the abdomen and pelvis was performed to evaluate for diverticulitis. CT of the abdomen and pelvis reveals bilateral renal stents with right kidney atrophy, no evidence of diverticulitis or nephrolithiasis. White count is mildly elevated, creatinine is 1.91, slightly better than her baseline which appears to be 2.3. The patient was reevaluated at 2:15 PM, still has left flank pain. I evaluated the skin area, there is no evidence of shingles stigmata. This may be musculoskeletal versus neuralgia. She does have Bath at home, is not a candidate for nonsteroidal use secondary to CKD. The patient is advised to follow-up with her primary physician tomorrow and with her box builder in 1 week as already scheduled. She will be provided a copy of her CT results and lab results at discharge. Diagnosis Primary Impression: Left flank pain Patient Instructions: General Instructions Additional Instructions: Please provide the patient a copy of her CT results and lab results at discharge. Follow-up with your primary physician and box builder. Continue pain medications at home as previously directed. Return if symptoms worsen or progress. Med/Other Pt SpecificInfo: No Change to Meds Disposition: 01 DISCHARGE HOME Condition: Stable Nadeem Mckeon MD Sep 24, 2017 12:40
[2017-09-24] MEDS ORDERED: ONDANSETRON HCL 4 MG/2 ML VIAL IVP ONE (12:45)
[2017-09-24] MEDS ORDERED: MORPHINE SULFATE 4 MG/ML INJ IV PUSH ONE ×2 (12:45→14:30)
[2017-09-24] MEDS ORDERED: SODIUM CHLORIDE 0.9% FLUSH 10 ML FLUSH IV FLUSH PRN (12:45)
[2017-09-24 12:56] LABS: AUTOMATED NEUTROPHIL # 10.9 TH/MM3 (1.8-7.7); BASOPHIL # 0.2 TH/MM3 (0-0.2); BASOPHIL % 1.5 % (0.0-2.0); EOSINOPHIL # 0.1 TH/MM3 (0-0.4); EOSINOPHIL % 0.6 % (0.0-4.0); HEMATOCRIT 39.6 % (35.0-46.0); HEMOGLOBIN 12.4 GM/DL (11.6-15.3); LYMPH % 9.2 % (9.0-44.0); LYMPHOCYTE # 1.2 TH/MM3 (1.0-4.8); MEAN CELL VOLUME 90.8 FL (80.0-100.0); MEAN CORPUSCULAR HEMOGLOBIN 28.4 PG (27.0-34.0); MEAN CORPUSCULAR HGB CONC 31.3 % (32.0-36.0); MEAN PLATELET VOLUME 8.3 FL (7.0-11.0); MONO % 8.3 % (0.0-8.0); MONOCYTE # 1.1 TH/MM3 (0-0.9); NEUT % 80.4 % (16.0-70.0); PLATELET COUNT 276 TH/MM3 (150-450); RED BLOOD COUNT 4.36 MIL/MM3 (4.00-5.30); RED CELL DISTRIBUTION WIDTH 16.7 % (11.6-17.2); WHITE BLOOD COUNT 13.5 TH/MM3 (4.0-11.0)
[2017-09-24 13:08] LABS: CHLORIDE 106 MEQ/L (98-107); SODIUM (NA) 140 MEQ/L (136-145)
[2017-09-24 13:09] LABS: BILIRUBIN, URINE NEG (NEG); BLOOD, URINE SMALL (NEG); GLUCOSE,URINE 250 mg/dL (NEG); KETONE, URINE NEG (NEG); NITRITE,URINE NEG (NEG); URINE LEUKOCYTE ESTERASE NEG (NEG)
[2017-09-24 13:11] LABS: CALCIUM 9.7 MG/DL (8.5-10.1)
[2017-09-24 13:12] LABS: ALBUMIN 2.9 GM/DL (3.4-5.0); BICARBONATE 25.9 MEQ/L (21.0-32.0); BLOOD UREA NITROGEN 37 MG/DL (7-18); GLUCOSE,RANDOM 192 MG/DL (74-106); LIPASE 128 U/L (73-393)
[2017-09-24 13:14] LABS: ALT (GPT) 34 U/L (10-53)
[2017-09-24 13:15] VITALS: BP 140/73; PULSE 67; RESP 16; O2SAT 94
[2017-09-24 13:15] LABS: AST (GOT) 21 U/L (15-37); GLOMERULAR FILTRATION RATE 26 ML/MIN (>89)
[2017-09-24 13:16] LABS: TOTAL BILIRUBIN ADULT 0.4 MG/DL (0.2-1.0); TOTAL PROTEIN 7.2 GM/DL (6.4-8.2)
[2017-09-24 13:17] LABS: ALKALINE PHOSPHATASE 97 U/L (45-117)
[2017-09-24 13:23] LABS: URINE COLOR YELLOW (YELLW/STRAW)
[2017-09-24 13:25] LABS: AMORPHOUS SEDIMENT, URINE FEW; RBC, URINE 0-3 /hpf (0-3); SQUAMOUS EPITHELIAL CELL URINE 0-5 /hpf (0-5)
--- NOTE | 2017-09-24 13:59 | RADRPT ---
EXAM DATE/TIME: 09/24/2017 13:30 [place] COMPARISON: CT ABDOMEN & PELVIS W/O CONTRAST, May 02, 2016, 11:22. INDICATIONS : Left sided back pain. ORAL CONTRAST: No oral contrast ingested. RADIATION DOSE: 23.10 CTDIvol (mGy) MEDICAL HISTORY : Gastroesophageal reflux disease. Chronic obstructive pulmonary disease. Renal insufficiency.Right lynn al artery stenosis. SURGICAL HISTORY : Cholecystectomy.Renal stent. ENCOUNTER: Initial ACUITY: 1 day PAIN SCALE: 6/10 LOCATION: Left flank TECHNIQUE: Volumetric scanning of the abdomen and pelvis was performed. Using automated exposure control and ad justment of the mA and/or kV according to patient size, radiation dose was kept as low as reasonably achievable to obtain optimal diagnostic quality images. DICOM format image data is available electro nically for review and comparison. FINDINGS: LOWER LUNGS: Bibasilar scarring. No mass is identified. LIVER: Homogeneous density without lesion. There is no dilation of the biliary tree. Gallbladder issurgica lly absent. SPLEEN: Normal size without lesion. PANCREAS: Within normal limits. KIDNEYS: Right kidney is atrophic. Left kidney has a normal appearance. Bilateral renal stents. ADRENAL GLANDS: Within normal limits. VASCULAR: There is no aortic aneurysm. BOWEL/MESENTERY: The stomach, small bowel, and colon demonstrate no acute abnormality. There is no free intraperitone al air or fluid. ABDOMINAL WALL: Within normal limits. RETROPERITONEUM: There is no lymphadenopathy. BLADDER: No wall thickening or mass. REPRODUCTIVE: Within normal limits. INGUINAL: There is no lymphadenopathy or hernia. MUSCULOSKELETAL: Within normal limits for patient age. CONCLUSION: Severe episodic disease with bilateral renal stents. The right kidney is quite atrophic. No free flui d or mass identified. Stable bibasilar scarring in lung bases. Uriel Martell MD on September 24, 2017 at 13:56 Board Certified Radiologist. This report was verified electronically.
== END 2017-09-24 15:09 | disposition home or self-care (01) ==
LOC: PHED 10:41
DX: R10.32 Left lower quadrant pain (principal); R11.2 Nausea with vomiting, unspecified; I13.0 Hypertensive heart and chronic kidney disease with heart failure and stage 1 through stage 4 chronic kidney disease, or unspecified chronic kidney disease; N18.4 Chronic kidney disease, stage 4 (severe); E11.22 Type 2 diabetes mellitus with diabetic chronic kidney disease; E78.00 Pure hypercholesterolemia, unspecified; J44.9 Chronic obstructive pulmonary disease, unspecified; K21.9 Gastro-esophageal reflux disease without esophagitis; M06.9 Rheumatoid arthritis, unspecified; M79.7 Fibromyalgia; Z79.4 Long term (current) use of insulin; Z87.891 Personal history of nicotine dependence
CPT/HCPCS: 74176; 80053; 81001; 83690; 85025; 96361; 96374; 96375; 96376; 99285; J2270; J2405; J7030

== ENCOUNTER → 2017-10-03 | Outpatient (CLI) | payer MEDICARE, OTHER ==
[~2017-10-03] MED LIST changes: -ADVA115A INH; +BROV15NE NEB; +BUDE0.25 NEB; -CALC0.25 PO; -HYDR-3535 PO; +MONT10TA2 PO; -MUPI2OIN TP; -PRED1 PO; -TEMA30CA PO; -TOBR3.5O EACH EYE; -VITA100C4 PO
[2017-10-03 17:38] LABS: AUTOMATED NEUTROPHIL # 10.5 TH/MM3 (1.8-7.7); BASOPHIL # 0.1 TH/MM3 (0-0.2); BASOPHIL % 0.6 % (0.0-2.0); EOSINOPHIL # 0.1 TH/MM3 (0-0.4); EOSINOPHIL % 0.8 % (0.0-4.0); HEMO FLAGS DIFF FINAL; LYMPH % 8.7 % (9.0-44.0); LYMPHOCYTE # 1.1 TH/MM3 (1.0-4.8); MEAN CELL VOLUME 95.5 FL (80.0-100.0); MEAN CORPUSCULAR HEMOGLOBIN 30.9 PG (27.0-34.0); MEAN CORPUSCULAR HGB CONC 32.3 % (32.0-36.0); MONO % 6.6 % (0.0-8.0); NEUT % 83.3 % (16.0-70.0); PLATELET COUNT 242 TH/MM3 (150-450); RED BLOOD COUNT 3.87 MIL/MM3 (4.00-5.30); WHITE BLOOD COUNT 12.6 TH/MM3 (4.0-11.0)
[2017-10-03 17:42] LABS: BLOOD, URINE TRACE (NEG); GLUCOSE,URINE 150 mg/dL (NEG); KETONE, URINE NEG (NEG); NITRITE,URINE NEG (NEG); PH, URINE 5.5 (5.0-8.5); RENAL EPITHELIAL CELLS <1 /hpf; URINE COLOR YELLOW (YELLW/STRAW)
[2017-10-03 18:01] LABS: BICARBONATE 26.7 MEQ/L (21.0-32.0); POTASSIUM 4.9 MEQ/L (3.5-5.1)
== END ==
LOC: PLAB 14:52
PROVIDERS: ATTEND Physician Assistant
DX: N18.4 Chronic kidney disease, stage 4 (severe) (principal)
CPT/HCPCS: 36415; 80069; 81001; 82306; 82570; 83970; 84156; 85025

== ENCOUNTER → 2017-10-03 | Outpatient (CLI) | payer MEDICARE, OTHER ==
[~2017-10-03] MED LIST changes: +BUPIVACAINE HCL PF 0.75% 30 ML VIAL ONE; +LIDOCAINE HCL 1% 20 ML VIAL ONE; +TRIAMCINOLONE ACETONIDE 40 MG/ML VIAL ONE
--- NOTE | 2017-10-03 11:51 | RADRPT ---
EXAM DATE/TIME: 10/03/2017 10:48 INDICATIONS : Left hip/leg pain. ACCESS LEVEL: LeftPiriformis muscle MEDICATION(S): 1.) 1 cc trimcinolone (Kenalog) IM 2.) 4 cc bupivacaine (Marcaine) IM DEVICE(S): 1.) 22 gauge Spinal needle MEDICAL HISTORY : Carcinoma, bladder. Hypertension. Renal failure SURGICAL HISTORY : Cholecystectomy. ENCOUNTER: Initial ACUITY: 1 day PAIN SCORE: 5/10 LOCATION: Left buttock PROCEDURE : CT guided steroid injection. The risks, benefits and alternatives to the procedure were explained and verbal and written consent w as obtained. The site was prepped in sterile fashion. Full sterile technique was used, including ca p, mask, sterile gloves and gown and a large sterile sheet. Hand hygiene and 2% chlorhexidine and/or betadine/alcohol prep was utilized per protocol for cutaneous antisepsis. The skin and subcutaneous tissues were infiltrated with local anesthetic solution. Using automated exposure control and adjus tment of the mA and/or kV according to patient size, radiation dose was kept as low as reasonably ach ievable to obtain optimal diagnostic quality images. DICOM format image data is available electronic ally for review and comparison. Appropriate area for injection was localized under CT guidance. The prescribed needle was placed skye n through the piriformis and a mixture of the prescribed dosage was instilled in and around the sciat ic nerve and piriformis. The patient was monitored for 20 minutes post procedure and left with reasonable symptomatic improvem ent. CONCLUSION: Uncomplicated CT guided steroid injection as above. Patient is significantly improved 20 minutes post procedure. Rodrigo Diaz MD FACR on October 03, 2017 at 11:49 Board Certified Radiologist. This report was verified electronically.
== END ==
LOC: EDSTATUS 09-29 09:48 → HRAD 09:50
PROVIDERS: ATTEND Allergy & Immunology
DX: M25.552 Pain in left hip (principal); M79.604 Pain in right leg
CPT/HCPCS: 77012; J3301

== ENCOUNTER → 2017-11-30 | Outpatient (CLI) | payer MEDICARE, OTHER ==
[~2017-11-30] MED LIST changes: -BUPIVACAINE HCL PF 0.75% 30 ML VIAL ONE; -LIDOCAINE HCL 1% 20 ML VIAL ONE; -TRIAMCINOLONE ACETONIDE 40 MG/ML VIAL ONE
[2017-11-30 09:48] LABS: AST (GOT) 15 U/L (15-37); BICARBONATE 25.2 MEQ/L (21.0-32.0); BLOOD UREA NITROGEN 58 MG/DL (7-18); CALCIUM 9.5 MG/DL (8.5-10.1); CHLORIDE 107 MEQ/L (98-107); GLOMERULAR FILTRATION RATE 23 ML/MIN (>89); GLUCOSE,FASTING 137 MG/DL (74-99); PHOSPHORUS 3.8 MG/DL (2.5-4.9); SODIUM (NA) 140 MEQ/L (136-145)
[2017-11-30 09:49] LABS: BILIRUBIN, URINE NEG (NEG); BLOOD, URINE NEG (NEG); C-REACTIVE PROTEIN 0.96 MG/DL (0.00-0.30); GLUCOSE,URINE NEG (NEG); KETONE, URINE NEG (NEG); MUCUS URINE FEW /lpf (OCC); NITRITE,URINE NEG (NEG); PH, URINE 5.5 (5.0-8.5); SQUAMOUS EPITHELIAL CELL URINE <1 /hpf (0-5); URINE COLOR YELLOW (YELLW/STRAW); URINE LEUKOCYTE ESTERASE NEG (NEG)
[2017-11-30 09:52] LABS: ALKALINE PHOSPHATASE 81 U/L (45-117); ALT (GPT) 27 U/L (10-53); TOTAL BILIRUBIN ADULT 0.2 MG/DL (0.2-1.0); TOTAL PROTEIN 6.7 GM/DL (6.4-8.2)
[2017-11-30 09:59] LABS: AUTOMATED NEUTROPHIL # 10.2 TH/MM3 (1.8-7.7); BASOPHIL % 0.4 % (0.0-2.0); EOSINOPHIL # 0.1 TH/MM3 (0-0.4); EOSINOPHIL % 0.8 % (0.0-4.0); HEMATOCRIT 35.5 % (35.0-46.0); HEMOGLOBIN 11.7 GM/DL (11.6-15.3); LYMPH % 8.4 % (9.0-44.0); LYMPHOCYTE # 1.1 TH/MM3 (1.0-4.8); MEAN CELL VOLUME 93.4 FL (80.0-100.0); MEAN CORPUSCULAR HEMOGLOBIN 30.7 PG (27.0-34.0); MEAN CORPUSCULAR HGB CONC 32.9 % (32.0-36.0); MEAN PLATELET VOLUME 9.3 FL (7.0-11.0); MONO % 9.8 % (0.0-8.0); MONOCYTE # 1.2 TH/MM3 (0-0.9); NEUT % 80.6 % (16.0-70.0); PLATELET COUNT 226 TH/MM3 (150-450); RED BLOOD COUNT 3.81 MIL/MM3 (4.00-5.30); RED CELL DISTRIBUTION WIDTH 17.9 % (11.6-17.2); WHITE BLOOD COUNT 12.7 TH/MM3 (4.0-11.0)
[2017-11-30 16:43] LABS: HEMOGLOBIN A1C 8.7 % (4.3-6.0)
== END ==
LOC: PLAB 06:43
PROVIDERS: ATTEND Family Medicine
DX: I70.1 Atherosclerosis of renal artery (principal); N18.4 Chronic kidney disease, stage 4 (severe); E11.9 Type 2 diabetes mellitus without complications; I50.30 Unspecified diastolic (congestive) heart failure; M35.3 Polymyalgia rheumatica; N25.81 Secondary hyperparathyroidism of renal origin; E55.9 Vitamin D deficiency, unspecified
CPT/HCPCS: 36415; 80053; 81001; 82306; 82570; 83036; 83970; 84100; 84156; 85025; 86140

== ENCOUNTER → 2018-02-15 | Outpatient (CLI) | payer MEDICARE, OTHER ==
[2018-02-15 18:16] LABS: AMORPHOUS SEDIMENT, URINE RARE; BILIRUBIN, URINE NEG (NEG); BLOOD, URINE NEG (NEG); GLUCOSE,URINE NEG (NEG); KETONE, URINE NEG (NEG); NITRITE,URINE NEG (NEG); PH, URINE 5.5 (5.0-8.5); SQUAMOUS EPITHELIAL CELL URINE <1 /hpf (0-5); URINE COLOR LIGHT-YELLOW (YELLW/STRAW); URINE LEUKOCYTE ESTERASE NEG (NEG)
[2018-02-15 18:35] LABS: AUTOMATED NEUTROPHIL # 9.7 TH/MM3 (1.8-7.7); BASOPHIL # 0.1 TH/MM3 (0-0.2); BASOPHIL % 0.5 % (0.0-2.0); EOSINOPHIL # 0.1 TH/MM3 (0-0.4); EOSINOPHIL % 0.5 % (0.0-4.0); HEMATOCRIT 36.5 % (35.0-46.0); HEMOGLOBIN 11.7 GM/DL (11.6-15.3); LYMPH % 8.1 % (9.0-44.0); MEAN CELL VOLUME 95.8 FL (80.0-100.0); MEAN CORPUSCULAR HEMOGLOBIN 30.6 PG (27.0-34.0); MEAN CORPUSCULAR HGB CONC 31.9 % (32.0-36.0); MEAN PLATELET VOLUME 9.1 FL (7.0-11.0); MONO % 8.9 % (0.0-8.0); PLATELET COUNT 253 TH/MM3 (150-450); RED BLOOD COUNT 3.81 MIL/MM3 (4.00-5.30); RED CELL DISTRIBUTION WIDTH 17.4 % (11.6-17.2); WHITE BLOOD COUNT 11.8 TH/MM3 (4.0-11.0)
[2018-02-15 18:42] LABS: ALT (GPT) 27 U/L (10-53); AST (GOT) 17 U/L (15-37); BICARBONATE 23.6 MEQ/L (21.0-32.0); BLOOD UREA NITROGEN 51 MG/DL (7-18); C-REACTIVE PROTEIN 2.01 MG/DL (0.00-0.30); CALCIUM 9.5 MG/DL (8.5-10.1); CHLORIDE 107 MEQ/L (98-107); CREATININE 1.94 MG/DL (0.50-1.00); GLOMERULAR FILTRATION RATE 25 ML/MIN (>89); GLUCOSE,RANDOM 117 MG/DL (74-106); PHOSPHORUS 3.1 MG/DL (2.5-4.9); SODIUM (NA) 142 MEQ/L (136-145)
[2018-02-15 18:44] LABS: ALKALINE PHOSPHATASE 73 U/L (45-117); TOTAL BILIRUBIN ADULT 0.3 MG/DL (0.2-1.0); TOTAL PROTEIN 6.8 GM/DL (6.4-8.2)
[2018-02-15 19:52] LABS: WESTERGREN SEDIMENTATION RATE 59 mm/hr (0-30)
== END ==
LOC: PLAB 13:06
PROVIDERS: ATTEND Internal Medicine Nephrology
DX: M35.3 Polymyalgia rheumatica (principal); N18.4 Chronic kidney disease, stage 4 (severe); E55.9 Vitamin D deficiency, unspecified
CPT/HCPCS: 36415; 80053; 81001; 82306; 82570; 83970; 84100; 84156; 85025; 85652; 86140

== ENCOUNTER → 2018-03-30 | Outpatient (CLI) | payer MEDICARE, OTHER ==
[2018-03-30 11:30] LABS: FREE T4 0.85 NG/DL (0.76-1.46)
[2018-03-30 22:29] LABS: HEMOGLOBIN A1C 7.8 % (4.3-6.0)
== END ==
LOC: PLAB 06:41
PROVIDERS: ATTEND Family Medicine
DX: D84.9 Immunodeficiency, unspecified (principal); E11.9 Type 2 diabetes mellitus without complications; J84.9 Interstitial pulmonary disease, unspecified; R91.1 Solitary pulmonary nodule; I71.2 Thoracic aortic aneurysm, without rupture
CPT/HCPCS: 36415; 83036; 84439; 84443